=== PATIENT | male | born 1960 | race Caucasian/White ===

== ENCOUNTER → 2023-04-11 12:15 | Outpatient (CLI) | payer MEDICARE, MEDICAID, SELFPAY ==
--- NOTE | 2023-04-11 | DI.ECHO.S_ITS ---
[facility] +---------+ : : [address] : [address] : : : : [id number] : : : : Phone: [phone]+ Echocardiogram Report + + :Name: ODILIA BAJWA Study Date: 04/11/2023 Height: 67 in : :[facility] ReadingLocation: Weight: 142 lb : : Gender: Male BSA: 1.7 m2 : :: 1960 Age: 62 yrs BP: 133/91 mmHg: :Reason For Study: Cardiac Murmur : :Ordering Physician: ROSA, : :ELSA Sainz Performed By: Dena Kang : :Referring: ELSA LEE : + + Interpretation Summary Normal sinus rhythm. Normal LV size and wall thickness; normal wall motion and LV systolic function. EF is 50-55%. Normal chamber sizes. No significant valvular abnormalities. No prior study available for comparison. Procedure: A two-dimensional transthoracic echocardiogram with color flow and Doppler was performed. The study quality was technically adequate. There is no prior echocardiogram noted for this patient. The patient was in normal sinus rhythm during the exam. Left Ventricle: The left ventricle is normal in size. The ejection fraction is estimated to be 50-55%. Diastolic parameters suggest a relaxation abnormality of the left ventricle, consistent with probable normal filling pressures. Right Ventricle: The right ventricle is normal in size and function. Atria: The left atrial size is normal. Right atrial size is normal. There is no Doppler evidence for an interatrial shunt. Mitral Valve: The mitral valve is normal. There is no mitral valve stenosis. There is trace mitral regurgitation. Aortic Valve: The aortic valve is trileaflet. The aortic valve opens well. There is no aortic valve stenosis. There is mild aortic regurgitation. Tricuspid Valve: The tricuspid valve is normal. There is no tricuspid stenosis. There is trace tricuspid regurgitation. Pulmonic Valve: The pulmonic valve leaflets are thin and pliable; valve motion is normal. There is no pulmonic valvular stenosis. There is mild pulmonic regurgitation. Great Vessels: The aortic root is normal size. The ascending aorta is normal in size. The pulmonary artery is normal size. The IVC is of normal diameter and collapses greater than 50% with a sniff. This suggests a low right atrial pressure of 3 mm Hg. Pericardium/ Pleura There is no pericardial effusion. There is no pleural effusion. MMode/2D Measurements & Calculations LVIDd: 4.3 cm LVOT diam: 2.1 cm LVIDs: 3.3 cm Ao root diam: 3.3 cm FS: 24.0 % asc Aorta Diam: 3.0 cm IVSd: 1.1 cm LVPWd: 0.91 cm LV conner. diameter/BSA (cm/m^2): 2.5 LV sys. diameter/BSA (cm/m^2): 1.9 LA A2 area: 17.2 cm2 RA long axis: 4.6 cm LA A4 area: 21.0 cm2 RA area: 12.1 cm2 LA length (vol): 6.2 cm RA vol: 27.2 ml LA vol: 49.2 ml RA : 15.6 ml/m2 LA vol index: 28.2 ml/m2 TAPSE: 2.0 cm Doppler Measurements & Calculations Ao V2 max: 158.4 cm/sec LVOT Max Nando: 92.3 cm/sec Ao V2 mean: 102.8 cm/sec LV V1 max P.4 mmHg Ao max P.0 mmHg LV V1 VTI: 17.7 cm Ao mean P.9 mmHg YASMIN(I,D): 2.1 cm2 Ao V2 VTI: 30.7 cm YASMIN(V,D): 2.1 cm2 sev ratio: 0.58 YASMIN indexed to BSA (cm^2/m^2): 1.2 MV E max nando: 54.1 cm/sec PA V2 max: 86.8 cm/sec MV A max nando: 59.5 cm/sec PA V2 mean: 63.2 cm/sec MV E/A: 0.91 PA mean P.7 mmHg Med Peak E' Nando: 4.6 cm/sec PA pr(Accel): 50.7 mmHg E/E' med: 11.9 Lat Peak E' Nando: 8.7 cm/sec E/E' lat: 6.2 E/e' average: 9.0 MV dec time: 0.21 sec SV(LVOT): 63.3 ml Electronically signed by: Lin Bonilla M.D. on Reading Physician:04/12/2023 01:23 AM
== END ==
PROVIDERS: Referring Provider Family Medicine; Visit Provider Family Medicine
DX: I35.1 Nonrheumatic aortic (valve) insufficiency (principal); I37.1 Nonrheumatic pulmonary valve insufficiency; R01.1 Cardiac murmur, unspecified
CPT/HCPCS: 93306

== ENCOUNTER 2024-10-20 09:52 | Day surgery (SDC) | payer MEDICARE, MEDICAID, SELFPAY ==
[2024-10-11 14:12] VITALS: BMI 26.2
--- NOTE | 2024-10-20 | PATH_ITS ---
[facility] Accession Number: [id number] No. of containers..01 Tissue . 01 Material submitted: . gallbladder - GALLBLADDER AND CONTENTS . 01 Diagnosis: GALLBLADDER AND CONTENTS, CHOLECYSTECTOMY: Mild chronic calculous cholecystitis and reactive changes. Benign lymph node of cystic duct with minute lipid granulomas. Negative for dysplasia, or malignancy. MRV 10/26/2024 1802 Local . 01 Electronically signed: . Cathleen Lovelace MD, Pathologist NPI- [id number] . 01 Gross description: . Received in formalin with two identifiers and gallbladder and contents, is an intact gallbladder, 11.6 x 3.5 x 3.4 cm, with an unremarkable external surface. The cystic duct margin is inked blue, and a boyd pericystic lymph node candidate is identified 0.7 cm in greatest dimension. The lumen contains a single black roughened calculus, 1.2 cm in greatest dimension not grossly obstructing the cystic duct and admixed with dark green viscous bile. The mucosa is green and velvety with no yellow areas of discoloration, polyps, or lesions identified. The smith average 0.2 cm thick. Oven Heater Helper sections to include the cystic duct margin, intact lymph node candidate, and full-thickness sections are submitted in A1. ([id number]) /MRV 10/22/2024 1751 Local . 01 Pathologist provided ICD-10: K80.20 . 01 CPT . 525451 Specimen Comment: A courtesy copy of this report has been sent to [phone] Performed at: [address] [id number], [place], [place] [id number] MD Binu Murillo MD Phone: [phone]
[2024-10-20 10:15] VITALS: BP 128/83; PULSE 70; RESP 16; TEMP 36.2; O2SAT 99; BMI 21.9
[2024-10-20] MEDS: ACETAMINOPHEN 325 MG TABLET 975 MG PO (10:32)
[2024-10-20] MEDS: FAMOTIDINE 20 MG/2 ML VIAL IV (10:32)
[2024-10-20] MEDS: LACTATED RINGERS 1,000 ML 42 ML IV (10:32)
--- NOTE | 2024-10-20 11:15 | PM.PREOP ---
Pre-operative Note COVID-19 COVID-19 status: Not tested Interval Note History & Physical reviewed/Exam performed by Physician: Yes Changes to H&P: No ASA Class (for procedural sedation): II
[2024-10-20] MEDS: CLINDAMYCIN 900 MG/50 ML PIGGYBACK 50 MG IV (11:50)
[2024-10-20] MEDS: BUPIVACAINE 0.5% W/ EPI (PF) 30 ML VIAL INJ (12:35)
[2024-10-20 13:00] VITALS: BP 120/72; PULSE 80; RESP 15; TEMP 36.5; O2SAT 97
[2024-10-20 13:05] VITALS: BP 116/76; PULSE 78; RESP 19; TEMP 36.5; O2SAT 96
--- NOTE | 2024-10-20 13:09 | PM.OP.1 ---
Operative Date/Time/Diagnoses Date of procedure: 10/20/24 Time of procedure: 13:09 Pre-op diagnosis: Symptomatic cholelithiasis Post-op diagnosis: same Procedure & Clinicians Procedure: Laparoscopic cholecystectomy Same procedure as scheduled: Yes Surgeon: Silver Lion Curb Attendant: Manuel Cleaning Anesthesia Type: General Operative Notes Findings: The patient was given preoperative antibiotics. The patient was brought to the operating room and placed on the table in the supine position. General endotracheal anesthesia was induced. The abdomen was prepped and draped. A time-out was performed. We made a 1 cm infraumbilical incision. We dissected down to the base of the umbilical stalk using cautery. We grasped the umbilical stalk with a Khalida clamp to elevate the abdominal wall. We scored the fascia in the midline with cautery. We pierced the peritoneum with a Peon clamp. The Erin port was placed and the abdomen was insufflated to 15 mmHg. A 5 mm 30 degree laparoscopic was inserted. There was no evidence of any injury from the entry. Next, we placed 5 mm ports in the subxiphoid position and right upper quadrant at the midclavicular line and anterior axillary line. The patient was then positioned in reverse Trendelenburg and the table was tilted to the left. The gallbladder was grasped at the dome and retracted cephalad. The gallbladder was rather distended with some visible large stones in the infundibulum. We then dissected the cystic structures with a combination of hook cautery and blunt dissection. We obtained a critical view. We placed clips on the cystic duct and artery and divided the cystic duct and artery sharply between the clips. The gallbladder was then dissected off the liver and placed in a specimen retrieval bag. We irrigated the right upper quadrant and all the aspirate returned clear. We then removed the 5 mm ports under direct vision we removed the Erin port. We then injected some local into the fascia and closed the fascia with 2 interrupted 0 Vicryl sutures. The skin incisions were closed with 4-0 Monocryl and Steri-Strips were applied. Band-Aids were applied over the Steri-Strips. EBL: 10 mL Specimen: Gallbladder and contents Manuel APYNE provided assistance with exposure, retraction and closure of incisions. Estimated Blood Loss (mL): 10 Complications: none Post-operative Condition: stable Disposition: PACU
[2024-10-20 13:11] VITALS: BP 120/73; PULSE 77; RESP 15; TEMP 36.5; O2SAT 97
[2024-10-20 13:16] VITALS: BP 127/77; PULSE 79; RESP 16; TEMP 36.4; O2SAT 97
== END 2024-10-20 13:25 | disposition home or self-care (01) ==
PROVIDERS: PCP Family Medicine; Referring Provider Surgery; Visit Provider Surgery
PROC: 0FT44ZZ Resection of Gallbladder, Percutaneous Endoscopic Approach (ICD-10-PCS; CPT 47562; principal; 2024-10-20 11:15)
DX: K80.10 Calculus of gallbladder with chronic cholecystitis without obstruction (principal)
CPT/HCPCS: 47562; J1100; J1885; J2250; J2405; J2704; J3010